=== PATIENT | female | born 1980 | race Caucasian/White ===

== ENCOUNTER 2016-12-17 23:41 | Emergency (ER) | payer MEDICAID ==
[~2016-12-17] VITALS: Ht 170.2 cm; Wt 126.7 kg
[~2016-12-17 23:41] MED LIST: LISI-167 PO; METF-86 PO; MULT-212 PO
[2016-12-17 23:43] VITALS: BP 142/88
[2016-12-18] MEDS ORDERED: SODIUM CHLORIDE 0.9% 1,000ML IVBOLUS ONE (01:00)
[2016-12-18 01:11] LABS: HEMOGLOBIN 13.9 g/dL (11.7-16.4)
[2016-12-18 01:24] LABS: ASPARTATE AMINO TRANSFERASE 128 U/L (15-37); BLOOD UREA NITROGEN 23 mg/dL (7-18)
[2016-12-18 03:09] LABS: DAU SCREEN DISCLAIMER
[2016-12-18 03:21] LABS: HCG UR OBC PASS
[2016-12-18 03:33] LABS: ICTOTEST POSITIVE
[2016-12-18] MEDS ORDERED: OMNIPAQUE 350 MG/ML, 100ML BOTTLE ONE (06:15)
== END 2016-12-18 03:39 | disposition left against medical advice (07) ==
LOC: ED 12-18 01:07
DX: L76.33 Postprocedural seroma of skin and subcutaneous tissue following a dermatologic procedure (principal); N83.209 Unspecified ovarian cyst, unspecified side; E11.9 Type 2 diabetes mellitus without complications; I10 Essential (primary) hypertension; F17.200 Nicotine dependence, unspecified, uncomplicated
CPT/HCPCS: 36415; 72132; 80053; 80307; 81001; 81025; 84703; 85025; 87086; 96360; 96361; 99285; J7030; Q9967

== ENCOUNTER 2018-01-21 10:28 | Emergency (ER) | payer MEDICAID ==
[~2018-01-21] VITALS: Ht 170.2 cm; Wt 113.1 kg
[~2018-01-21 10:28] MED LIST changes: +METF-162 PO; -METF-86 PO
[2018-01-21] MEDS ORDERED: MORPHINE SULFATE 4 MG/ML, 1ML ONE ×2 (11:22→12:19)
[2018-01-21] MEDS: MORPHINE SULFATE 4 MG/ML, 1ML IVPush PRN ×2 (11:23→12:21)
[2018-01-21] MEDS ORDERED: SODIUM CHLORIDE FLUSH 10ML SYR IVF ONE (11:30)
[2018-01-21] MEDS ORDERED: SODIUM CHLORIDE 0.9% 1,000ML IVBOLUS ONE (11:30)
[2018-01-21 11:33] LABS: BASOPHILS # (AUTO) 0.05 x10^3/uL (0-0.1); BASOPHILS % (AUTO) 0 % (0-1); EOSINOPHILS % (AUTO) 2 % (1-7); LYMPHOCYTES % (AUTO) 23 % (22-44); MD NO; MEAN CORPUSCULAR HEMOGLOBIN 29.8 pg (27.0-34.8); MEAN CORPUSCULAR HGB CONC 33.6 g/dL (32.4-35.8); MEAN CORPUSCULAR VOLUME 88.5 fL (80-100); MEAN PLATELET VOLUME 8.4 fL (7.4-10.4); MONOCYTES # (AUTO) 0.67 x10^3/uL (0.2-0.8); MONOCYTES % (AUTO) 6 % (2-9); NEUTROPHILS # (AUTO) 7.78 x10^3/uL (1.8-6.8); NEUTROPHILS % (AUTO) 69 % (42-75); PLATELET COUNT 258 x10^3/uL (130-400); RED BLOOD COUNT 4.55 x10^6/uL (3.82-5.3); RED CELL DISTRIBUTION WIDTH 16.4 % (9.6-15.2)
[2018-01-21 11:36] LABS: ALANINE AMINOTRANSFERASE 29 U/L (12-78); ALBUMIN 3.4 g/dL (3.4-5.0); ANION GAP 6 mmol/L (5-15); CALCIUM 8.3 mg/dL (8.5-10.1); CHLORIDE 107 mmol/L (98-107); CREATININE 0.62 mg/dL (0.55-1.02)
[2018-01-21 11:41] LABS: ALKALINE PHOSPHATASE 52 U/L (45-117); BILIRUBIN,TOTAL 0.1 mg/dL (0.2-1.0)
[2018-01-21] MEDS ORDERED: OMNIPAQUE 350 MG/ML, 100ML BOTTLE ONE (13:03)
[2018-01-21] MEDS ORDERED: PHENAZOPYRIDINE 200 MG TABLET PO ONE (13:30)
[2018-01-21] MEDS ORDERED: PHENAZOPYRIDINE 200 MG TABLET ONE ×2 (13:30→15:05)
[2018-01-21 14:19] VITALS: BP 117/75
[2018-01-21 14:34] LABS: CULTURE INDICATED? YES; MICROSCOPIC INDICATED
== END 2018-01-21 15:32 | disposition home or self-care (01) ==
LOC: ED 15:20
DX: N30.01 Acute cystitis with hematuria (principal); Q05.9 Spina bifida, unspecified; Z90.721 Acquired absence of ovaries, unilateral
CPT/HCPCS: 36415; 74177; 80053; 81001; 84703; 85025; 87086; 93005; 96361; 96374; 99285; J7030; Q9967

== ENCOUNTER 2018-02-24 20:40 | Emergency (ER) | payer MEDICAID ==
[~2018-02-24] VITALS: Ht 165.1 cm; Wt 106.8 kg
[2018-02-24] MEDS ORDERED: HYDROmorphone 1 MG/ML, 1ML IM ONE (21:30)
[2018-02-24] MEDS ORDERED: METHOCARBAMOL 750 MG TABLET PO ONE (21:30)
[2018-02-24] MEDS ORDERED: METHOCARBAMOL 750 MG TABLET ONE (21:40)
[2018-02-24] MEDS ORDERED: HYDROmorphone 1 MG/ML, 1ML ONE (21:40)
== END 2018-02-24 22:30 | disposition left against medical advice (07) ==
LOC: ED 21:43
DX: R07.89 Other chest pain (principal); I10 Essential (primary) hypertension; E11.9 Type 2 diabetes mellitus without complications; Z88.0 Allergy status to penicillin; Z90.49 Acquired absence of other specified parts of digestive tract; Z88.1 Allergy status to other antibiotic agents
CPT/HCPCS: 71046; 93005; 96372; 99284; J1170

== ENCOUNTER 2019-01-12 20:01 | Emergency (ER) | payer MEDICAID ==
[~2019-01-12] VITALS: Ht 170.2 cm; Wt 110.3 kg
[2019-01-12 20:14] VITALS: BP 155/97
[2019-01-12] MEDS ORDERED: HYDROcodone/APAP 5/325 TABLET PO ONE (21:00)
[2019-01-12] MEDS ORDERED: HYDROcodone/APAP 5/325 TABLET ONE ×2 (21:02→21:03)
[2019-01-12] MEDS ORDERED: CLINDAMYCIN 300 MG CAPSULE ONE (21:11)
[2019-01-12] MEDS ORDERED: CLINDAMYCIN 300 MG CAPSULE PO ONE (21:30)
== END 2019-01-12 21:17 | disposition home or self-care (01) ==
LOC: ED 20:38
DX: K02.9 Dental caries, unspecified (principal); K04.7 Periapical abscess without sinus
CPT/HCPCS: 99283